=== PATIENT | male | born 1955 | race Caucasian/White ===

== ENCOUNTER 2022-08-19 02:31 | Emergency (ER) | payer OTHER ==
[2022-08-19 02:58] VITALS: BP 160/76; PULSE 74; RESP 20; TEMP 98.2
[2022-08-19 04:03] VITALS: BMI 19.0
== END 2022-08-19 08:00 | disposition left against medical advice (07) ==
LOC: JER 02:31
DX: D21.12 Benign neoplasm of connective and other soft tissue of left upper limb, including shoulder (principal)
CPT/HCPCS: 99281-25